=== PATIENT | male | born 1975 | race Caucasian/White ===

== ENCOUNTER → 2017-02-12 | Outpatient (CLI) | payer OTHER ==
[~2017-02-12] MED LIST: ADVIL200 MG PO; EXCEDRIN MIGRA1 EACH PO; TRAMADOL HCL50 MG PO; TYLENOL EXTRA500 MG PO
== END | disposition disaster alternative care site (69) ==
LOC: GRAD 10:00
DX: M54.16 Radiculopathy, lumbar region (principal); M54.5 Low back pain; M51.26 Other intervertebral disc displacement, lumbar region; M47.26 Other spondylosis with radiculopathy, lumbar region

== ENCOUNTER → 2017-04-01 | Day surgery (SDC) | payer OTHER ==
--- NOTE | ~2017-04-01 | OR ---
PATIENT'S NAME: KRISTA PIEDRA [facility] AGE: 41 Y [address] 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 INDICATIONS: The patient has lumbar disk disease and low back pain with right lower extremity radiculopathy. He has a herniated disk. DESCRIPTION OF PROCEDURE: Risks, benefits, and alternatives explained to the patient. He wished to proceed. He was taken to the procedure room and placed in prone position. Back was prepped with Betadine x3. Sterile drape. Fluoroscopy was used to identify the L3-L4 disk interspace and the skin was numbed with 3 mL of 1% lidocaine. Next, using fluoroscopic guidance, a 22- gauge spinal needle with gentle manual bend was advanced into position. Once this was felt to be in good position, 1 mL of contrast was injected in total AP and lateral views. This showed no intrathecal uptake or intravascular uptake. Next, a mixture of 2 mL of 2% lidocaine and 10 mg of preservative- free Decadron was injected without complication. Shortly after the procedure, the patient did state he had improvement in his pain. COMPLICATIONS: None. BLOOD LOSS: None. REBEL SHAIKH MD JJP/modl /[id number] d: 04/01/171946 t: 04/03/17 1359, OPERATIVE SUMMARY
== END ==
LOC: GPOC 03-31 15:00 → GSDC 12:49
PROC: 3E0R3BZ Introduction of Anesthetic Agent into Spinal Canal, Percutaneous Approach (ICD-10-PCS; principal; 2017-04-01)
PROC: 3E0R33Z Introduction of Anti-inflammatory into Spinal Canal, Percutaneous Approach (ICD-10-PCS; 2017-04-01)
DX: M51.16 Intervertebral disc disorders with radiculopathy, lumbar region (principal); I10 Essential (primary) hypertension; F17.200 Nicotine dependence, unspecified, uncomplicated; Z98.890 Other specified postprocedural states
CPT/HCPCS: J1100